=== PATIENT | male | born 1945 | race Caucasian/White ===

== ENCOUNTER 2022-07-01 19:01 | Emergency (ER) | payer BC, MEDICARE ==
[2022-07-01 19:10] VITALS: TEMP 98.6
--- NOTE | 2022-07-01 19:57 | XR ---
EXAMINATION TYPE: XR chest 2V DATE OF EXAM: 07/01/2022 COMPARISON: 05/13/2015 HISTORY: Short of breath TECHNIQUE: 2 views FINDINGS: Heart size is normal. There is some coarsening interstitial markings. There are no hilar ma sses. There is left axillary pacemaker. No pleural effusion. Bony thorax is intact. IMPRESSION: Pulmonary interstitial infiltrates likely related to fibrosis which have progressed [place] red to old exam. No heart failure
[2022-07-01] MEDS ORDERED: methylPREDNISolone SOD SUCCI 125 MG/2 ML VIAL IV STA (21:18)
[2022-07-01] MEDS ORDERED: ALBUTEROL NEBULIZED 2.5 MG/3 ML INHALATION STA (21:18)
[2022-07-01 21:54] LABS: Basophils # (A) 0.1 k/uL (0-0.2); Basophils % (A) 1 %; Eosinophils # (A) 0.1 k/uL (0-0.7); Eosinophils % (A) 2 %; HCT 45.7 % (39.0-53.0); HGB 16.1 gm/dL (13.0-17.5); Lymphocytes # (A) 0.7 k/uL (1.0-4.8); Lymphocytes % (A) 12 %; MCH 35.5 pg (25.0-35.0); MCHC 35.2 g/dL (31.0-37.0); MCV 100.8 fL (80.0-100.0); Mean Platelet Volume 8.2; Monocytes # (A) 0.7 k/uL (0-1.0); Monocytes % (A) 13 %; Neutrophils % (A) 70 %; Platelet Count 140 k/uL (150-450); RBC 4.53 m/uL (4.30-5.90); RDW 12.9 % (11.5-15.5); WBC 5.7 k/uL (3.8-10.6)
[2022-07-01 21:59] LABS: ALT 29 U/L (4-49); AST 23 U/L (17-59); African American GFR (CKD) >90 (>60 ml/min/1.73 sqM); Albumin 3.3 g/dL (3.5-5.0); Alkaline Phosphatase 95 U/L (38-126); Anion Gap 5 mmol/L; Blood Urea Nitrogen 13 mg/dL (9-20); Carbon Dioxide 25 mmol/L (22-30); Chloride 107 mmol/L (98-107); Glucose 103 mg/dL (74-99); Non-African American GFR(CKD) 80 (>60 ml/min/1.73 sqM); Potassium 4.3 mmol/L (3.5-5.1); Sodium 137 mmol/L (137-145); Total Bilirubin 0.7 mg/dL (0.2-1.3)
[2022-07-01 22:09] LABS: INR 0.9 (<1.2); Prothrombin Time 10.1 sec (9.0-12.0)
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
[2022-07-01 23:21] VITALS: BP 140/60; PULSE 60; RESP 18
== END 2022-07-01 23:43 | disposition home or self-care (01) ==
LOC: EC 19:01
DX: J44.1 Chronic obstructive pulmonary disease with (acute) exacerbation (principal); I11.0 Hypertensive heart disease with heart failure; I50.9 Heart failure, unspecified; I25.10 Atherosclerotic heart disease of native coronary artery without angina pectoris; I48.91 Unspecified atrial fibrillation; K21.9 Gastro-esophageal reflux disease without esophagitis; E78.5 Hyperlipidemia, unspecified; Z86.718 Personal history of other venous thrombosis and embolism; F41.9 Anxiety disorder, unspecified; Z91.048 Other nonmedicinal substance allergy status; Z79.82 Long term (current) use of aspirin; Z79.01 Long term (current) use of anticoagulants; Z79.899 Other long term (current) drug therapy; Z20.822 Contact with and (suspected) exposure to COVID-19
CPT/HCPCS: 36415; 94640; 83880; 80053; 84484; 85025; 85610; 85730; 87636; 71046; 99285; 96374; J2930

== ENCOUNTER → 2024-03-11 | Outpatient (CLI) | payer BC, MEDICARE ==
[2024-03-11 14:54] LABS: Blood Urea Nitrogen 14.3 mg/dL (9.0-27.0); Calcium 8.7 mg/dL (8.7-10.3); Carbon Dioxide 24.1 mmol/L (21.6-31.8); Chloride 105 mmol/L (96-109); Glucose 117 mg/dL (70-110); Potassium 5.4 mmol/L (3.5-5.5); Sodium 139 mmol/L (135-145)
== END | disposition home or self-care (01) ==
LOC: LABWHC1 12:24
PROVIDERS: ATTEND Internal Medicine Clinical Cardiac Electrophysiology
DX: I47.29 Other ventricular tachycardia (principal); I50.22 Chronic systolic (congestive) heart failure; I48.19 Other persistent atrial fibrillation; I42.8 Other cardiomyopathies
CPT/HCPCS: 36415; 80048; 83735

== ENCOUNTER 2024-07-04 10:19 | Observation (INO) | payer BC, MEDICARE ==
[2024-07-04 11:00] LABS: Basophils % (A) 1 %; Eosinophils # (A) 0.1 k/uL (0-0.7); Eosinophils % (A) 2 %; HGB 18.1 gm/dL (13.0-17.5); Lymphocytes # (A) 0.8 k/uL (1.0-4.8); Lymphocytes % (A) 14 %; MCHC 33.6 g/dL (31.0-37.0); MCV 101.4 fL (80.0-100.0); Macrocytosis Slight; Mean Platelet Volume 7.8; Monocytes # (A) 0.4 k/uL (0-1.0); Monocytes % (A) 7 %; Neutrophils # (A) 4.2 k/uL (1.3-7.7); Neutrophils % (A) 75 %; Platelet Count 138 k/uL (150-450); RBC 5.33 m/uL (4.30-5.90); RDW 12.9 % (11.5-15.5); WBC 5.6 k/uL (3.8-10.6)
[2024-07-04 11:08] LABS: Partial Thromboplastin Time 22.2 sec (22.0-30.0)
[2024-07-04 11:14] LABS: ALT 27 U/L (4-49); AST 26 U/L (17-59); African American GFR (CKD) >90 (>60 ml/min/1.73 sqM); Albumin 3.6 g/dL (3.5-5.0); Alkaline Phosphatase 104 U/L (38-126); Anion Gap 8 mmol/L; Blood Urea Nitrogen 15 mg/dL (9-20); Calcium 8.4 mg/dL (8.4-10.2); Carbon Dioxide 23 mmol/L (22-30); Chloride 106 mmol/L (98-107); Glucose 133 mg/dL (74-99); Magnesium 2.1 mg/dL (1.6-2.3); Non-African American GFR(CKD) 78 (>60 ml/min/1.73 sqM); Potassium 4.8 mmol/L (3.5-5.1); Sodium 137 mmol/L (137-145); Total Protein 6.3 g/dL (6.3-8.2)
[2024-07-04 11:22] LABS: NT-Pro-B-Type Natriuretic Pept 1190 pg/mL
--- NOTE | 2024-07-04 11:29 | XR ---
EXAMINATION TYPE: XR chest 2V DATE OF EXAM: 07/04/2024 11:18 AM COMPARISON: 07/01/2022 CLINICAL INDICATION: Male, 78 years old with history of Chest Pain, , TECHNIQUE: PA and lateral views FINDINGS: Left anterior chest wall ICD generator with right atrial and right ventricular leads. Heart borderlin e in size. Diffuse interstitial densities. Patchy opacity left lower lung. Trace bilateral pleural ef fusion suggested. IMPRESSION: Correlate for CHF with pulmonary vascular congestion. Some patchy pulmonary edema versus developing i nfiltrate at the left base. Trace pleural effusions. [facility], Workstation: [id number], 07/04/2024 11:26 AM
[2024-07-04] MEDS ORDERED: NITROGLYCERIN SL TABS 0.4 MG TAB SUBLINGUAL PRN (11:35)
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
[2024-07-04] MEDS: FUROSEMIDE 10 MG/ML 4 ML VIAL IV STA (12:03)
[2024-07-04] MEDS: IPRATROPIUM-ALBUTEROL 3 ML NEB INHALATION SCH ×2 (13:15→21:10)
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
--- NOTE | 2024-07-04 18:00 | CA ---
Transthoracic Echo Report Name: Juan Meier Age: 78 Gender: M : 1945 Exam Date: 07/04/2024 15:42 Exam Location: [place] [facility] Ht (in): 72 Wt (lb): 280 Ordering Physician: Santiago Patrick Attending/Referring Phys: Compositor Apprentice Janay Crocker RDCS Procedure CPT: Indications: CP, CHF Cardiac Hx: Technical Quality: Poor, Technically difficult study Contrast 1: Definity Total Dose (mL): 2 Contrast 2: Total Dose (mL): MEASUREMENTS (Male / Female) Normal Values 2D ECHO LV Diastolic Diameter PLAX 6.5 cm 4.2 - 5.9 / 3.9 - 5.3 cm LV Systolic Diameter PLAX 5.2 cm IVS Diastolic Thickness 1.3 cm 0.6 - 1.0 / 0.6 - 0.9 cm LVPW Diastolic Thickness 1.3 cm 0.6 - 1.0 / 0.6 - 0.9 cm LV Relative Wall Thickness 0.4 RV Internal Dim ED PLAX 2.2 cm LA Systolic Diameter LX 5.1 cm 3.0 - 4.0 / 2.7 - 3.8 cm LA Volume 118.6 cm??? 18 - 58 / 22 - 52 cm??? LA Volume Index 45.8 cm???/m??? 16 - 28 cm???/m??? M-MODE Aortic Root Diameter MM 4.0 cm LA Systolic Diameter MM 4.1 cm LA Ao Ratio MM 1.0 AV Cusp Separation MM 1.8 cm DOPPLER AI Peak Velocity 217.2 cm/s AI Peak Gradient 18.9 mmHg AI Pressure Half Time 823.4 ms TR Peak Velocity 222.9 cm/s TR Peak Gradient 19.9 mmHg Right Ventricular Systolic Press 23.3 mmHg FINDINGS Left Ventricle Left ventricular ejection fraction is estimated at 30-35 %. Mildly increased septal wall thickness. Moderately increased left ventricular diastolic diameter. Moderately reduced global left ventricular systolic function. Right Ventricle Right ventricle not well visualized.right ventricular systolic pressure within normal limits. Right Atrium Moderate right atrial dilatation. Catheter/pacemaker wire in the right atrial cavity. Left Atrium Moderately increased left atrial diameter. Severely increased left atrial volume. Mildly increased left atrial area. Mitral Valve Mitral valve not well visualized. Mild mitral regurgitation. No mitral stenosis. Aortic Valve Trileaflet aortic valve. Diffuse thickening (sclerosis) of the aortic valve cusps without reduced excursion. Mild aortic regurgitation. Tricuspid Valve Structurally normal tricuspid valve. Mild tricuspid regurgitation. No tricuspid stenosis. Pulmonic Valve Pulmonic valve not well visualized. Pericardium Echo free space anterior to the right ventricle likely represents a fat pad. Aorta Moderate aortic dilatation at the level of the sinuses of valsalva (root). Moderately dilated proximal ascending aorta (tube). CONCLUSIONS Diagnosis chest pain and congestive heart failure Reduced LV systolic function less than 30% Biatrial enlargement enlargement of the ascending aorta Previewed by: Dr. Joshua Acosta MD (Electronically Signed) Final Date: 04 July 2024 17:59
[2024-07-04] MEDS: FUROSEMIDE 10 MG/ML 4 ML VIAL IV SCH (21:37)
[2024-07-04] MEDS: MIRTAZAPINE 15 MG TAB PO SCH (21:37)
[2024-07-04] MEDS: PRAVASTATIN SODIUM 40 MG TAB PO SCH (21:38)
[2024-07-04] MEDS: SACUBITRIL/VALSARTAN 24 MG-26 MG TABLET PO SCH (21:38)
[2024-07-04] MEDS: METOPROLOL SUCCINATE (ER) 50 MG TAB.ER.24H PO SCH (21:38)
[2024-07-04] MEDS: APIXABAN 5 MG TAB PO SCH (21:38)
[2024-07-05] MEDS: PANTOPRAZOLE 40 MG TABLET PO SCH (05:51)
[2024-07-05 08:06] VITALS: BP 100/67; RESP 16; TEMP 97.7
[2024-07-05 08:13] VITALS: PULSE 56
[2024-07-05 08:31] LABS: BUN/Creat Ratio 13.55 Ratio (12.00-20.00); Blood Urea Nitrogen 14.9 mg/dL (9.0-27.0); Calcium 8.4 mg/dL (8.7-10.3); Carbon Dioxide 24.1 mmol/L (21.6-31.8); Chloride 105 mmol/L (96-109); Chol/HDL Ratio 3.41 Ratio; Glucose 120 mg/dL (70-110); LDL Cholesterol,Calculated 56.7 mg/dL (0.0-131.0); Potassium 4.2 mmol/L (3.5-5.5); Sodium 142 mmol/L (135-145)
[2024-07-05 08:43] LABS: HCT 53.1 % (39.6-50.0); HGB 18.1 g/dL (13.0-17.0); MCH 34.5 pg (27.0-32.0); MCHC 34.1 g/dL (32.0-37.0); MCV 101.3 FL (80.0-97.0); Mean Platelet Volume 11.2 FL (9.5-12.2); NRBC Per 100 WBC 0 X 10*3/uL (0.00-0.01); Platelet Count 137 X 10*3/uL (140-440); RBC 5.24 X 10*6/uL (4.40-5.60); RDW 13.3 % (11.5-14.5); WBC 6.68 X 10*3/uL (4.50-10.00)
[2024-07-05] MEDS: DAPAGLIFLOZIN PROPANEDIOL 5 MG TABLET PO SCH (08:54)
[2024-07-05] MEDS: FUROSEMIDE 40 MG TAB PO SCH (08:54)
[2024-07-05] MEDS: buPROPion SR 150 MG TABLET.ER PO SCH (08:54)
[2024-07-05] MEDS: ASPIRIN 81 MG PO SCH (08:55)
[2024-07-05] MEDS: TAMSULOSIN 0.4 MG CAP.ER.24H PO SCH (08:55)
[2024-07-05] MEDS: METOPROLOL SUCCINATE (ER) 100 MG TAB.ER.24H PO SCH (08:55)
--- NOTE | 2024-07-05 09:53 | P.DS ---
Providers Date of admission: 07/04/24 10:43 Expected date of discharge: 07/05/24 Attending physician: Quincy Goel Consults: 07/04/24 11:35 Consult Physician Urgent Consulting Provider: Barry Guzman Consult Reason/Comments: chest pain Do you want consulting provider notified?: Yes Primary care physician: Wisam Garrido Hospital Course: Discharge Diagnosis: Acute on chronic systolic heart failure with mild exacerbation. Received IV diuresis and discharged home with new prescription for Lasix 40 mg daily. Patient to follow-up outpatient with [facility] home health in 1 week. Chest pain, patient reports concerns that defibrillator fired and awoken him from sleep. Cardiology evaluated interrogation of ICD stating no firing of defibrillator. Troponins were negative at less than 0.012 x 3. Patient cleared from cardiac perspective acute coronary event ruled out. Chronic atrial fibrillation. Daily medication regimen with Eliquis 5 mg twice daily and metoprolol 100 mg daily. Nonischemic cardiomyopathy. Echocardiogram repeated showing EF of 30 to 35%, unchanged from 2015. Continue cardiac medication regimen with aspirin 81 mg daily, Jardiance 5 mg daily, metoprolol 100 mg daily and 50 mg nightly, pravastatin 80 mg nightly, and Entresto 24-26 mg tablets twice daily. History of nonsustained V. tach status post ICD placement Hypertension. Hyperlipidemia. History of nonobstructive CAD Known aortic aneurysm 4.7 cm. Continue to follow-up outpatient with [facility] home health/cardiothoracic surgeon for monitoring/surveillance. BPH. Continue Flomax 0.8 mg daily. COPD, not in acute exacerbation. Continue home scheduled nebulizers 2 times daily and as needed for wheezing/shortness of breath. Obstructive sleep apnea. Continue CPAP nightly and while napping. Anxiety and PTSD. Continue daily medication regimen with Wellbutrin 150 mg daily. Hospital Course: Patient is a pleasant 78-year-old male with a past medical history of mild nonobstructive coronary artery disease, chronic atrial fibrillation status post ablation and cardioversion on anticoagulation with Eliquis, chronic systolic heart failure with nonischemic cardiomyopathy status post AICD placement, history of previous DVT and PE, hypertension, hyperlipidemia, BPH, mild COPD not home oxygen dependent reports scheduled home nebulizers twice daily, and obstructive sleep apnea CPAP dependent nightly. Patient reports he follows with Dr. Acosta, r[facility] home health. He presented to the emergency department with a chief complaint of chest pain and exertional dyspnea. Patient reports he awoken this morning with concerns that his defibrillator went off because he had sudden pain to his chest. Patient states he has been experiencing worsening exertional dyspnea over the past month accompanied by a mostly nonproductive cough with occasional clear sputum production. He denies experiencing any chest pain prior to today when he was awoken by the pain feeling as though his defibrillator fired. He denies having any headache, lightheadedness, dizziness, palpitations, feeling short of breath at rest, experiencing any recent fevers, chills, diaphoresis nausea, vomiting, or experiencing any swelling/weakness/numbness/tingling in his extremities. Upon arrival to our facility, patient underwent evaluation in the emergency department. Vital signs on arrival show blood pressure 118/73, heart rate 61, respiratory rate 18, temp 97.8 F, and SpO2 95% on room air, EKG showing atrial fibrillation at 65 bpm with frequent PVCs. Chest x-ray showing trace bilateral pleural effusion and increased pulmonary vascular congestion concerning for CHF and pulmonary edema. Labs completed and reviewed. CBC showing elevated hemoglobin of 18.1 and thrombocytopenia with platelet count of 138. Coagulation profile normal findings. BMP unremarkable with exception of slightly elevated glucose of 133. Magnesium 2.1. Liver profile unremarkable. Troponin was less than 0.012 and proBNP was 1190. Patient started on IV Lasix and admitted under our services with consultation to cardiology. At time of admission patient currently reports full resolution of previous reported chest pain and continues to deny shortness of breath at rest, but reports it does return with minimal exertion. Troponins trended all negative at less than 0.012 x 3 draws. Echocardiogram completed showing a reduced EF of 30 to 35% with biatrial enlargement of the ascending aorta. Cardiology evaluated ICD interpretation no firing of defibrillator. Recommending discontinuation of IV Lasix and starting patient on oral Lasix 40 mg daily and increasing pravastatin to 80 mg daily. Cardiology clearing patient from cardiac standpoint recommending outpatient follow-up in their office in 1 week. Patient remains free from any further episodes of chest pain or discomfort. He is medically optimized at this time. Prescriptions were sent for medication changes. Patient instructed he will need to follow-up outpatient with his PCP in 1 to 2 days and with r[facility] home health in 1 week. Physical exam: Vital signs reviewed and stable. General: Nontoxic, no distress and appears stated age. Derm: Skin warm and dry, normal coloration for ethnicity. Head: Atraumatic, normocephalic and symmetric. Eyes: EOM's intact, no lid lag, and anicteric sclera Mouth: no lip lesions, mucus membranes moist Cardiovascular: Irregularly irregular, soft systolic murmur, positive posterior tibial pulses bilaterally, and cap refill < 2 seconds. Lungs: Respirations even, regular, and unlabored on room air. Lungs diminished otherwise no wheezing, rhonchi, rales, or crackles noted upon auscultation. Abdominal: soft, nontender to palpation, no guarding, no appreciable organomegaly Ext: ROM intact. No gross muscle atrophy, scant lower extremity edema, no contractures Neuro: Speech clear, face symmetrical and CN II-XII grossly intact with no noted focal neuro deficits Psych: Alert and oriented to person, place, time, and situation. Appropriate and pleasant affect. A total of 36 minutes of time were spent preparing this complex discharge summary. Pt was discharged on 07/05/24 at 9:52 AM. Patient was seen independently by Nurse Practitioner. This document was prepared using [employer] dictation software. Please allow for errors in environmental aid while rare they do occur. Santiago Patrick NP rendered care for this patient independently, reviewed the findings and plan as documented in the note above. I did not physically speak with or examine the patient on this date. Patient Condition at Discharge: Stable Plan - Discharge Summary Discharge Rx Participant: Yes New Discharge Prescriptions: New Furosemide [Lasix] 40 mg PO DAILY 30 Days #30 tab Pravastatin Sodium [Pravachol] 80 mg PO HS 30 Days #30 tab Continue Aspirin EC [Ecotrin Low Dose] 81 mg PO DAILY Sacubitril/Valsartan [Entresto 24 mg-26 mg Tablet] 1 tab PO BID buPROPion SR [Wellbutrin SR] 150 mg PO DAILY Tamsulosin [Flomax] 0.8 mg PO DAILY Omeprazole 20 mg PO DAILY Apixaban [Eliquis] 5 mg PO BID Mirtazapine [Remeron] 30 mg PO HS Metoprolol Succinate (ER) [Toprol XL] 50 mg PO HS Metoprolol Succinate (ER) [Toprol XL] 100 mg PO DAILY Empagliflozin [Jardiance] 10 mg PO DAILY Discontinued Pravastatin Sodium [Pravachol] 40 mg PO HS Discharge Medication List Apixaban [Eliquis] 5 mg PO BID 07/01/22 [History] Aspirin EC [Ecotrin Low Dose] 81 mg PO DAILY 07/01/22 [History] Omeprazole 20 mg PO DAILY 07/01/22 [History] Sacubitril/Valsartan [Entresto 24 mg-26 mg Tablet] 1 tab PO BID 07/01/22 [History] buPROPion SR [Wellbutrin SR] 150 mg PO DAILY 07/01/22 [History] Empagliflozin [Jardiance] 10 mg PO DAILY 07/04/24 [History] Metoprolol Succinate (ER) [Toprol XL] 50 mg PO HS 07/04/24 [History] Metoprolol Succinate (ER) [Toprol XL] 100 mg PO DAILY 07/04/24 [History] Mirtazapine [Remeron] 30 mg PO HS 07/04/24 [History] Tamsulosin [Flomax] 0.8 mg PO DAILY 07/04/24 [History] Furosemide [Lasix] 40 mg PO DAILY 30 Days #30 tab 07/05/24 [Rx] Pravastatin Sodium [Pravachol] 80 mg PO HS 30 Days #30 tab 07/05/24 [Rx] Follow up Appointment(s)/Referral(s): Joshua Acosta MD [STAFF PHYSICIAN] - 07/12/24 11:00 am Wisam Garrido MD [Primary Care Provider] - 1-2 days Patient Instructions/Handouts: Heart Failure (DC), Chest Pain (DC) Activity/Diet/Wound Care/Special Instructions: Activity: As tolerated. Take breaks as needed. Diet: Heart healthy and carb consistent diet. Avoid salts, or foods with hidden salts such as canned or boxed foods and frozen dinners. Extra salt makes your heart work harder and traps the fluid in your body for longer. Special Instructions: Take all of your medications as directed and remember to keep all of your doctor's appointments and follow-up as needed. Weigh yourself every morning after you urinate. If you gain 3 pounds overnight or more than 5 pounds in one week, call your primary physician and rn home health for guidance on your medications or they may want to see you in their office. Keep a daily log of your weights and be sure to bring with you at follow up visits with your PCP and rn home health. Elevate your legs when you are not up moving around to help with circulation and prevent swelling. Compression stockings are also a great way to improve lower extremity circulation and prevent/improve lower extremity edema. Call your primary care provider and rn home health if you notice any extra swelling in your legs, ankles, feet or abdomen, if you have a new dry cough, if your shortness of breath worsens with activity or at rest, or if you feel more fatigued. Thank you for allowing us to participate in your care, it was truly a pleasure having you for our patient!!! . Discharge Disposition: HOME SELF-CARE
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
[2024-07-05] MEDS ORDERED: PRAVASTATIN SODIUM 80 MG TAB PO SCH (21:00)
== END 2024-07-05 16:14 | disposition home or self-care (01) ==
LOC: EC 10:19 → 6NMEDSUR 10:43
PROVIDERS: ADMIT Student in an Organized Health Care Education/Training Program; ATTEND Student in an Organized Health Care Education/Training Program
DX: I11.0 Hypertensive heart disease with heart failure (principal); I50.23 Acute on chronic systolic (congestive) heart failure; I48.21 Permanent atrial fibrillation; I42.8 Other cardiomyopathies; E78.5 Hyperlipidemia, unspecified; I25.10 Atherosclerotic heart disease of native coronary artery without angina pectoris; I71.00 Dissection of unspecified site of aorta; N40.0 Benign prostatic hyperplasia without lower urinary tract symptoms; G47.33 Obstructive sleep apnea (adult) (pediatric); F41.9 Anxiety disorder, unspecified; F43.10 Post-traumatic stress disorder, unspecified; J44.9 Chronic obstructive pulmonary disease, unspecified; J84.10 Pulmonary fibrosis, unspecified; K21.9 Gastro-esophageal reflux disease without esophagitis; Z86.711 Personal history of pulmonary embolism; Z86.718 Personal history of other venous thrombosis and embolism; Z87.891 Personal history of nicotine dependence; Z95.810 Presence of automatic (implantable) cardiac defibrillator; Z79.01 Long term (current) use of anticoagulants; Z79.899 Other long term (current) drug therapy; Z79.82 Long term (current) use of aspirin; Z79.84 Long term (current) use of oral hypoglycemic drugs
CPT/HCPCS: 96376; 96374; 99285; 36415; 94640 ×2; 93005; 93306; 83880; 80061; 80053; 80048; 84443; 83735 ×2; 84484; 85025; 85027; 85610; 85730; 71046; G0378 ×2; J1940; S0106; Q9957